=== PATIENT | male | born 1980 | race African-American/Black ===

== ENCOUNTER 2021-10-06 13:13 | Emergency (ER) | payer OTHER ==
[2021-10-06 13:26] VITALS: BP 135/85; PULSE 87; RESP 18; TEMP 98.8; BMI 34.2
[2021-10-06 15:19] LABS: HEMATOCRIT 43.9 % (35.4-49); HEMOGLOBIN 15.3 G/dL (11.7-16.9); MCH 32.2 pg (25.7-33.7); MCHC 34.7 g/dl (32.0-35.9); MEAN CELL VOLUME 92.9 fl (80-96); PLATELET COUNT 271.7 10^3/uL (134-434); RBC 4.73 10^6/uL (4.00-5.60); RDW 14.5 % (11.9-15.9); WHITE BLOOD COUNT 5.8 10^3/uL (4.0-10.8)
[2021-10-06 15:27] LABS: ALBUMIN 4.1 g/dl (3.4-5.0); BILIRUBIN,TOTAL 0.6 mg/dl (0.2-1); CALCIUM 9.5 mg/dl (8.5-10); CREATININE 1.2 mg/dl (0.55-1.3); TOT PROT 7.3 g/dl (6.4-8.2)
== END 2021-10-06 17:17 | disposition home or self-care (01) ==
LOC: FER 13:13
DX: R42 Dizziness and giddiness (principal)
CPT/HCPCS: 36415; 70450-TC; 70498-TC; 80053; 85027; 93005; 99285-25; Q9967